=== PATIENT | male | born 1970 | race Caucasian/White ===

== ENCOUNTER 2016-10-30 22:51 | Emergency (ER) | payer OTHER, BC ==
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
[2016-10-31 00:07] VITALS: BP 102/63; PULSE 84; RESP 15; TEMP 98.4
== END 2016-10-31 00:06 | disposition home or self-care (01) ==
LOC: EC 22:51
DX: Z04.1 Encounter for examination and observation following transport accident (principal); E78.5 Hyperlipidemia, unspecified; Z79.899 Other long term (current) drug therapy; M10.9 Gout, unspecified
CPT/HCPCS: 36415; 80320; 99284

== ENCOUNTER → 2019-03-19 | Outpatient (CLI) | payer BC ==
[2019-03-19 12:03] LABS: Basophils # (A) 0.1 k/uL (0-0.2); Basophils % (A) 1 %; Eosinophils # (A) 0.1 k/uL (0-0.7); Eosinophils % (A) 1 %; HGB 17.7 gm/dL (13.0-17.5); Lymphocytes # (A) 1.3 k/uL (1.0-4.8); Lymphocytes % (A) 15 %; MCH 30.6 pg (25.0-35.0); MCHC 34.1 g/dL (31.0-37.0); MCV 89.7 fL (80.0-100.0); Mean Platelet Volume 7.2; Monocytes # (A) 0.5 k/uL (0-1.0); Monocytes % (A) 6 %; Neutrophils # (A) 6.1 k/uL (1.3-7.7); Neutrophils % (A) 73 %; Platelet Count 252 k/uL (150-450); RDW 12.8 % (11.5-15.5); WBC 8.4 k/uL (3.8-10.6)
[2019-03-19 17:53] LABS: African American GFR (CKD) 74.3 (60.0-200.0); Anion Gap 9.2 mmol/L (4.00-12.00); BUN/Creat Ratio 13.08 Ratio (12.00-20.00); Calcium 9.9 mg/dL (8.7-10.3); Carbon Dioxide 25.8 mmol/L (21.6-31.8); LDL Cholesterol,Calculated 115.4 mg/dL (0.0-131.0); Non-African American GFR(CKD) 64.1 (60.0-200.0); Potassium 4.7 mmol/L (3.5-5.5); VLDL Calculation 36.6 mg/dL (5.00-40.00)
== END ==
LOC: LABWHC1 11:12
PROVIDERS: ATTEND Nurse Practitioner
DX: R07.9 Chest pain, unspecified (principal)
CPT/HCPCS: 36415; 80048; 80061; 85025

== ENCOUNTER → 2019-03-19 | Outpatient (CLI) | payer BC ==
--- NOTE | 2019-03-19 10:28 | P.PN ---
Progress Note - Text Stress test abnormal. Pt seen and evaluated by Dr. Arizmendi. Advised him to undergo cardiac catheterization for definitive diagnosis. Pt is hesitant and would like to go home and have done as an outpatient. Denies active chest pain, shortness of breath or dizziness. Attempted to order an echo, however required a prior authorization. Strongly recommended he stay and be placed on observation for labs, echo and cath tomorrow. Dr. Vasquez notified.
--- NOTE | 2019-03-19 11:49 | EST ---
EXERCISE STRESS DATE OF SERVICE: 03/19/2019 AGE: 48 SEX: Male HT: 5'10" WT: 175 pounds PROTOCOL: Edilson STAGE: IV DURATION OF EXERCISE: 10 minutes HEART RATE REST: 84 BLOOD PRESSURE REST: 136/99 MAXIMUM HEART RATE ACHIEVED: 140 MAXIMUM BLOOD PRESSURE: 178/82 85% MPHR: 145 100% MPHR: 171 METS: 11.7 INDICATIONS: Chest pain. CLINICAL INFORMATION: STRESS DATA: Heart rate 84, pressure is 136/99 mmHg. Baseline EKG showed sinus mechanism with diffuse nonspecific changes. The patient exercised on the treadmill according to Edilson protocol for a total of 10 minutes and achieved 11.7 METs. Max heart rate was 140 which is about 94% of maximum predicted heart rate. Maximum blood pressure was 178/82 mmHg. Clinically the patient did not have any symptoms of chest pain or chest discomfort in response to exercise. The EKG showed about [address]-segment changes concerning for severe underlying coronary artery disease. CONCLUSION: 1. Excellent exercise tolerance. 2. Abnormal EKG in response to exercise with evidence of ST changes concerning for ischemic heart disease. MMODL / IJN: [id number] /
== END | disposition home or self-care (01) ==
LOC: RADNMMAIN 08:35
PROVIDERS: ATTEND Internal Medicine
DX: R07.89 Other chest pain (principal)
CPT/HCPCS: 93017

== ENCOUNTER 2019-03-23 08:57 | Day surgery (SDC) | payer BC ==
[2019-03-21 13:55] VITALS: BMI 27.2
[~2019-03-23 08:57] MED LIST: ALPRAZolam 0.25 MG TAB PO PRN; ALPRAZolam 0.5 MG TAB PO PRN; ASPIRIN 325 MG TAB PO ONE; NITROGLYCERIN SL TABS 0.4 MG TAB SUBLINGUAL PRN; SODIUM CHLORIDE 0.9% 1,000 ML in EMPTY BAG 1 BAG IV ONE
[2019-03-23] MEDS ORDERED: VERAPAMIL 2.5 MG/ML 2 ML AMP ONE (10:46)
[2019-03-23] MEDS ORDERED: LIDOCAINE 1% INJ 10MG/ML (20 ML MDV) ONE (10:46)
[2019-03-23] MEDS ORDERED: fentaNYL (PF) 50 MCG/ML 2 ML AMP ONE (11:05)
[2019-03-23] MEDS ORDERED: fentaNYL (PF) 50 MCG/ML 2 ML AMP IV ONE (11:07)
[2019-03-23] MEDS ORDERED: MIDAZOLAM 2 MG/2 ML VIAL IV ONE ×2 (11:07→11:21)
[2019-03-23] MEDS ORDERED: LIDOCAINE 1% INJ 10MG/ML (20 ML MDV) SQ ONE (11:23)
[2019-03-23] MEDS ORDERED: VERAPAMIL SYRINGE (5 MG/10 ML) INTRAARTER ONE (11:25)
[2019-03-23] MEDS ORDERED: HEPARIN SODIUM 1,000 UN/ML (10ML VL) ONE (11:26)
[2019-03-23] MEDS: HEPARIN SODIUM 1,000 UN/ML (10ML VL) IV ONE ×2 (11:27→11:41)
[2019-03-23] MEDS ORDERED: HYDROmorphone 1 MG/ML 1 ML SYRINGE ONE (11:27)
[2019-03-23] MEDS ORDERED: HYDROmorphone 1 MG/ML 1 ML SYRINGE IVP ONE (11:28)
[2019-03-23] MEDS ORDERED: CLOPIDOGREL 75 MG TAB ONE (11:33)
[2019-03-23] MEDS ORDERED: CLOPIDOGREL 75 MG TAB PO ONE (11:37)
[2019-03-23] MEDS ORDERED: NITROGLYCERIN 1000MCG/10ML SYRINGE INTRACORON ONE (11:42)
[2019-03-23] MEDS ORDERED: MAG HYDROX/AL HYDROX/SIMETH 30 ML CUP PO PRN (11:59)
[2019-03-23] MEDS ORDERED: ATROPINE SULFATE 0.1 MG/ML 10ML SYRINGE IV PRN (11:59)
[2019-03-23] MEDS ORDERED: NITROGLYCERIN SL TABS 0.4 MG TAB SUBLINGUAL PRN (11:59)
[2019-03-23] MEDS ORDERED: RX INFO: IV CONTRAST WAS GIVEN 1 EACH MISC MISCELLANE PRN (11:59)
[2019-03-23] MEDS ORDERED: ZOLPIDEM 5 MG TAB PO PRN (11:59)
[2019-03-23] MEDS ORDERED: SODIUM CHLORIDE 0.9% 1,000 ML IV SCH (12:00)
[2019-03-23] MEDS ORDERED: IOPAMIDOL-370 125ML BTL INJ ONE (12:01)
--- NOTE | 2019-03-23 12:53 | CC ---
CARDIAC CATHETERIZATION REPORT DATE OF SERVICE: 03/23/2019 PERFORMING PHYSICIAN: Mark Arizmendi MD. PROCEDURE PERFORMED: 1. Selective right and left coronary angiogram. 2. Left heart catheterization. 3. Successful stenting of the mid right coronary artery using 3.5 x 23 mm Xience SAMSON with an excellent angiographic results and reduction of stenosis from 99% to 0%. INDICATION: This is a very pleasant 48-year-old gentleman with history of hypertension and dyslipidemia who was seen recently at his primary care physician office for abnormal EKG because he was feeling tired and fatigued and has no energy. He was experiencing symptoms of fatigue and tiredness and he underwent as an EKG at Dr. Vasquez's office which revealed sinus rhythm with diffuse nonspecific changes. A stress test was performed and came in to be abnormal and because of that, a heart catheterization was advised. APPROACH: Right radial artery. COMPLICATION: None. LEVEL OF SEDATION: Moderate with sedation length of 36 minutes. PROCEDURE DESCRIPTION: After obtaining an informed consent, the patient was brought to the cardiac labor utilization superintendent. The right radial artery was cannulated using micropuncture technique, the micropuncture wire passed easily, then I placed a 6-Mauritanian sheath in the right radial artery. I gave the patient after that 2 mg of verapamil [place] [id number] units of heparin IV. Selective right and left coronary angiogram performed using JR4 and JL3.5 catheters. Left heart catheterization was performed by using 5-Mauritanian pigtail catheter. The procedure was completed at that point. Subsequently, I did intervene on the RCA, please see a separate paragraph for that. SELECTIVE CORONARY ANGIOGRAM: 1. The right coronary artery is a large caliber vessel. It is a dominant vessel. The proximal RCA has mild disease only. The mid RCA has a lesion, appeared to be in the range of 99.9%. The RCA distally appeared to be normal and bifurcates into PDA and PLV branches. The PDA branch appeared to be a small caliber vessel and the PLV branch appeared to be intermediate disease with mild to moderate diffuse disease. 2. The left main is short but angiographically normal, it bifurcates into left circumflex and left anterior descending artery. 3. The left circumflex is a large caliber vessel, it is a nondominant vessel. The proximal circumflex appeared to be normal. The mid circumflex is normal and gives rise into OM1, which is a large caliber vessel with a tight lesion in the proximal portion. The circumflex continued after that as a medium caliber vessel in the AV groove. Distally gives rise into a second OM branch which appeared to have mild disease only. 4. The LAD, the proximal LAD appeared to be normal. The mid LAD has mild disease only and gives rise into the first diagonal branch which is a medium to large caliber vessel with a lesion about 70%. The LAD distally appeared to have mild disease only. 5. HEMODYNAMICS: The LVEDP was about 8-10 mmHg without significant gradient across aortic valve. 6. PCI of the RCA: Anticoagulation was achieved using heparin with ACT monitoring throughout the procedure and prior to inserting the wire. The RCA was engaged using JR4 guide. I did wire it using a whisper wire. I did balloon angioplasty using 3.0 x 12 mm balloon before I deployed a 3.5 x 23 mm Xience SAMSON where the stent was positioned under fluoroscopy guidance and deployed under 20 atmospheres for 20 seconds with the following angiogram showing excellent angiographic results and the procedure was completed without any complication. CONCLUSION: 1. Critical disease involving the mid right coronary artery. I did perform successful stenting of the mid RCA using 3.5 x 23 mm Xience SAMSON. 2. Normal left main coronary artery. 3. Severe disease involving OM1 of the left circumflex. 4. Mild disease involving the left anterior descending artery. Severe disease involving the first diagonal branch of the left anterior descending artery. POSTPROCEDURE MANAGEMENT: 1. Continue dual anti-platelet therapy. 2. High-intensity statin. 3. PCI of the left circumflex and possibly the diagonal in the next few weeks. MMODL / IJN: [id number] /
[2019-03-23 15:00] VITALS: RESP 18
[2019-03-23] MEDS ORDERED: LORATADINE 10 MG TAB PO SCH (21:00)
[2019-03-23] MEDS ORDERED: ATORVASTATIN 10 MG TAB PO SCH (21:00)
[2019-03-23] MEDS ORDERED: METOPROLOL SUCCINATE (ER) 25 MG TAB.ER.24H PO SCH (21:00)
[2019-03-23] MEDS ORDERED: ALLOPURINOL 100 MG TAB PO SCH (21:00)
[2019-03-24 05:20] LABS: Basophils # (A) 0.1 k/uL (0-0.2); Basophils % (A) 1 %; Eosinophils # (A) 0.2 k/uL (0-0.7); Eosinophils % (A) 3 %; HCT 48.6 % (39.0-53.0); HGB 16.6 gm/dL (13.0-17.5); Lymphocytes # (A) 1.6 k/uL (1.0-4.8); Lymphocytes % (A) 21 %; MCH 30.7 pg (25.0-35.0); MCHC 34.2 g/dL (31.0-37.0); MCV 89.9 fL (80.0-100.0); Mean Platelet Volume 6.9; Monocytes # (A) 0.4 k/uL (0-1.0); Monocytes % (A) 5 %; Neutrophils # (A) 5.1 k/uL (1.3-7.7); Neutrophils % (A) 68 %; Platelet Count 274 k/uL (150-450); RDW 12.6 % (11.5-15.5); WBC 7.5 k/uL (3.8-10.6)
[2019-03-24 05:38] LABS: Calcium 9.2 mg/dL (8.4-10.2); Potassium 4.4 mmol/L (3.5-5.1)
[2019-03-24 08:13] VITALS: BP 139/86; PULSE 101; TEMP 98.7
[2019-03-24] MEDS ORDERED: ASPIRIN 325 MG TAB PO SCH (09:00)
[2019-03-24] MEDS ORDERED: CLOPIDOGREL 75 MG TAB PO SCH (09:00)
--- NOTE | 2019-03-24 13:44 | P.DS ---
Providers Date of admission: March 232018 Attending physician: Mark Arizmendi Consults: 03/23/19 11:59 Consult Physician Routine Consulting Provider: [facility] Consult Reason/Comments: Post Interventional patient Do you want consulting provider notified?: Already Contacted Primary care physician: Hipolito [facility] Course: This is a very pleasant 48-year-old gentleman who was experiencing symptoms of feeling tired and fatigued. He underwent a stress test came in to be unremarkable. Subsequently underwent heart catheterization yesterday which showed critical disease involving the right coronary artery and severe disease involving the LCx and diagonal branch of the LAD. He underwent successful stenting of the RCA with a good angiographic results. He was seen this morning. The procedure was performed from the right radial artery. He is asymptomatic from a cardiovascular standpoint overview. He does have a good right radial pulse. He is going to be discharged on dual antiplatelet therapy and statin and I will follow-up with the patient next week in the office. Plan - Discharge Summary Discharge Rx Participant: Yes New Discharge Prescriptions: New Aspirin 325 mg PO DAILY #90 tab Clopidogrel [Plavix] 75 mg PO DAILY #90 tab Continue Allopurinol [Zyloprim] 100 mg PO HS Simvastatin [Zocor] 20 mg PO HS Metoprolol Succinate [Toprol XL] 25 mg PO HS Levocetirizine Dihydrochloride [Xyzal] 5 mg PO HS Discharge Medication List Allopurinol [Zyloprim] 100 mg PO HS 03/21/19 [History] Levocetirizine Dihydrochloride [Xyzal] 5 mg PO HS 03/21/19 [History] Metoprolol Succinate [Toprol XL] 25 mg PO HS 03/21/19 [History] Simvastatin [Zocor] 20 mg PO HS 03/21/19 [History] Aspirin 325 mg PO DAILY #90 tab 03/24/19 [Rx] Clopidogrel [Plavix] 75 mg PO DAILY #90 tab 03/24/19 [Rx] Follow up Appointment(s)/Referral(s): Mark Arizmendi MD [STAFF PHYSICIAN] - 1 Week (Office closed - please call Tuesday to schedule follow up. ) Patient Instructions/Handouts: Heart Catheterization (DC) Discharge Disposition: HOME SELF-CARE
== END 2019-03-24 11:10 | disposition home or self-care (01) ==
LOC: CATHCVL 08:57 → 3SCARD 12:01 → CATHCVL 03-24 11:10
PROVIDERS: ATTEND Internal Medicine Interventional Cardiology
DX: I25.10 Atherosclerotic heart disease of native coronary artery without angina pectoris (principal); I10 Essential (primary) hypertension; E78.00 Pure hypercholesterolemia, unspecified; E78.5 Hyperlipidemia, unspecified; F41.9 Anxiety disorder, unspecified; R45.0 Nervousness; F17.290 Nicotine dependence, other tobacco product, uncomplicated; Z79.899 Other long term (current) drug therapy; Z83.438 Family history of other disorder of lipoprotein metabolism and other lipidemia; Z82.49 Family history of ischemic heart disease and other diseases of the circulatory system
CPT/HCPCS: 93458; 85347; 80048; 85025; C9600; C1769 ×2; C1887; C1725; C1874; C1894; J2250; J2001; J3010; J1644; J1170; Q9967; 92928